=== PATIENT | male | born 1980 | race Caucasian/White ===

== ENCOUNTER 2019-07-26 06:16 | Emergency (ER) | payer BC ==
--- NOTE | 2019-07-26 06:37 | EDM.PDOC ---
ED HPI GENERAL MEDICAL PROBLEM - General Chief Complaint: General Stated Complaint: PERSISTENT FLU-LIKE SYMPTOMS Time Seen by Provider: 07/26/19 06:36 Source of Information: Reports: Patient - History of Present Illness INITIAL COMMENTS - FREE TEXT/NARRATIVE: HISTORY AND PHYSICAL: History of present illness: [Patient presents with persistent fever chills sweats loose stools for 2 weeks as well as sore throat has no muffled voice drooling or trismus is diagnosed with sinusitis and placed on a Z-Guido which he is completed continues to have continued fever chills and sweats], Review of systems: As per history of present illness and below otherwise all systems reviewed and negative. Past medical history: As per history of present illness and as reviewed below otherwise noncontributory. Surgical history: As per history of present illness and as reviewed below otherwise noncontributory. Social history: No reported history of drug or alcohol abuse. Family history: As per history of present illness and as reviewed below otherwise noncontributory. Physical exam: HEENT: Atraumatic, normocephalic, pupils reactive, negative for conjunctival pallor or scleral icterus, mucous membranes moist, throat clear, neck supple, nontender, trachea midlin As tenderness left greater than right no meningeal signs Lungs: Clear to auscultation, breath sounds equal bilaterally, chest nontender. Heart: S1S2, regular, negative for clicks, rubs, or JVD. Abdomen: Soft, nondistended, nontender. Negative for masses or hepatosplenomegaly. Negative for costovertebral tenderness. Pelvis: Stable nontender. Genitourinary: Deferred. Rectal: Deferred. Extremities: Atraumatic, negative for cords or calf pain. Neurovascular unremarkable. Neuro: Awake, alert, oriented. Cranial nerves II through XII unremarkable. Cerebellum unremarkable. Motor and sensory unremarkable throughout. Exam nonfocal. Diagnostics: [CBC CMP UA West Nile Lyme titers Chest 1 view ] Therapeutics: [ of a Savage [id number] symptomatic therapies discussed ] Impression: [ sinusitis Persistent cough ] Definitive disposition and diagnosis as appropriate pending reevaluation and review of above. body Pain Score (Numeric/FACES): 3 - Related Data Allergies Allergy/AdvReac Type Severity Reaction Status Date / Time No Known Allergies Allergy Verified 07/26/19 06:18 Home Meds: Home Meds . [No Known Home Meds] 07/26/19 [History] Past Medical History HEENT History: Reports: Sinusitis Social & Family History - Family History Family Medical History: Noncontributory - Tobacco Use Smoking Status *Q: Current Every Day Smoker Years of Tobacco use: 10 Packs/Tins Daily: 1 - Recreational Drug Use Recreational Drug Use: No ED ROS GENERAL - Review of Systems Review Of Systems: See Below ED EXAM, GENERAL - Physical Exam Exam: See Below Course - Vital Signs Last Recorded V/S: Last Vital Signs Temp 97 F 07/26/19 06:20 Pulse 76 07/26/19 06:20 Resp 18 07/26/19 06:20 BP 147/97 H 07/26/19 06:20 Pulse Ox 98 07/26/19 06:20 - Orders/Labs/Meds Orders: Active Orders 24 hr Category Date Time Status Chest 1V Frontal [CR] Stat Exams 07/26/19 06:36 Ordered CBC WITH AUTO DIFF [HEME] Stat Lab 07/26/19 06:36 Ordered COMPREHENSIVE METABOLIC PN,CMP [CHEM] Stat Lab 07/26/19 06:36 Ordered LYME, TOTAL AB TEST/REFLEX [REF] Stat Lab 07/26/19 06:37 Ordered UA RFX JUAN AND CULT IF INDIC [URIN] Stat Lab 07/26/19 06:36 Ordered WEST NILE VIRUS ANTIBODY,SERUM [REF] Stat Lab 07/26/19 06:37 Ordered Departure - Departure Time of Disposition: 06:39 Disposition: Home, Self-Care 01 Condition: Good Clinical Impression: Sinusitis - Discharge Information Referrals: PCP,None [Primary Care Provider] - Forms: ED Department Discharge Additional Instructions: Medication as prescribed [id number] symptomatic therapy is discussed Zyrtec 10 mg by mouth daily may benefit flonase 2 sprays each nostril daily may benefit harmony pot daily use may benefit as discussed I did check for West Nile and Lyme's disease as requested, these are send out test will not be available for several days likely Monday/monday at this time Return if symptoms persist or worsen or if new concerning symptoms develop Follow-up with primary care in 2 weeks sooner as needed [facility] - Primary Care [address] [place] [id number] for persistent sinusitis consider ENT follow-up: this can be gained through the [facility] or [facility] facility in [place], [place] The following information is given to patients seen in the emergency department who are being discharged to home. This information is to outline your options for follow-up care. We provide all patients seen in our emergency department with a follow-up referral. The need for follow-up, as well as the timing and circumstances, are variable depending upon the specifics of your emergency department visit. If you don't have a primary care physician on staff, we will provide you with a referral. We always advise you to contact your personal physician following an emergency department visit to inform them of the circumstance of the visit and for follow-up with them and/or the need for any referrals to a consulting specialist. The emergency department will also refer you to a specialist when appropriate. This referral assures that you have the opportunity for follow-up care with a specialist. All of these measure are taken in an effort to provide you with optimal care, which includes your follow-up. Under all circumstances we always encourage you to contact your private physician who remains a resource for coordinating your care. When calling for follow-up care, please make the office aware that this follow-up is from your recent emergency room visit. If for any reason you are refused follow-up, please contact the [facility] emergency department at and asked to speak to the emergency department charge nurse. - My Orders Last 24 Hours: My Active Orders 07/26/19 06:36 Chest 1V Frontal [CR] Stat CBC WITH AUTO DIFF [HEME] Stat COMPREHENSIVE METABOLIC PN,CMP [CHEM] Stat UA RFX JUAN AND CULT IF INDIC [URIN] Stat 07/26/19 06:37 LYME, TOTAL AB TEST/REFLEX [REF] Stat WEST NILE VIRUS ANTIBODY,SERUM [REF] Stat - Assessment/Plan Last 24 Hours: My Active Orders 07/26/19 06:36 Chest 1V Frontal [CR] Stat CBC WITH AUTO DIFF [HEME] Stat COMPREHENSIVE METABOLIC PN,CMP [CHEM] Stat UA RFX JUAN AND CULT IF INDIC [URIN] Stat 07/26/19 06:37 LYME, TOTAL AB TEST/REFLEX [REF] Stat WEST NILE VIRUS ANTIBODY,SERUM [REF] Stat
--- NOTE | 2019-07-26 07:22 | CR ---
Indication : Fever. FINDINGS: A single portable chest x-ray shows a normal cardiac silhouette. The lungs show no focal pulmonary opacities. Sharp pleural margins. No pneumothorax. IMPRESSION: No evidence of acute pulmonary abnormalities. Dictated by Wilbur Golden MD @ 07/26/2019 7:21:07 AM Dictated by: Wilbur Golden MD @ 07/26/2019 07:21:16 (Electronically Signed)
[2019-07-26 07:33] LABS: BLOOD UREA NITROGEN,BUN 19 mg/dL (7.0-18.0); CARBON DIOXIDE,CO2 29.9 mmol/L (21.0-32.0); CHLORIDE,CL 105 mmol/L (98-107); GLUCOSE RANDOM 110 mg/dL (74-106); POTASSIUM,K 4.3 mmol/L (3.5-5.1); SODIUM,NA 142 mmol/L (136-148)
== END 2019-07-26 07:46 | disposition home or self-care (01) ==
LOC: MW.ED 06:16
DX: J32.9 Chronic sinusitis, unspecified (principal)
CPT/HCPCS: 36415; 71045; 71045-26; 80053; 85025; 86618; 86788; 86789; 99283-25

== ENCOUNTER 2019-12-23 11:37 | Emergency (ER) | payer BC ==
[2019-12-23] MEDS ORDERED: Sodium Chloride 0.9% 1,000 ML IV ONE (11:50)
[2019-12-23] MEDS ORDERED: LORazepam 2 MG/ML SDV IVPUSH ONE (11:50)
--- NOTE | 2019-12-23 12:24 | CR ---
Chest: Portable view of the chest was obtained. Comparison: Prior chest x-ray of 07/26/19. Heart size and mediastinum are normal. Nodular type density is noted within the left upper chest. This is most likely due to an area of atelectasis. Lungs otherwise are clear. Scoliosis is noted within the spine. Impression: 1. Nodular density within the left upper chest most likely due to atelectasis as this is not seen on prior chest x-ray. 2. Nothing acute is otherwise seen. Diagnostic code #2 This report was dictated in [place] Standard Time
[2019-12-23 13:45] LABS: BLOOD UREA NITROGEN,BUN 20 mg/dL (7.0-18.0); CARBON DIOXIDE,CO2 28.4 mmol/L (21.0-32.0); CHLORIDE,CL 106 mmol/L (98-107); GLUCOSE RANDOM 119 mg/dL (74-106); LIPASE 136 U/L (73-393); POTASSIUM,K 3.7 mmol/L (3.5-5.1); SODIUM,NA 143 mmol/L (136-148)
[2019-12-23] MEDS ORDERED: Ketorolac 30 MG/ML SDV IVPUSH ONE (13:53)
--- NOTE | 2019-12-23 13:57 | EDM.PDOC ---
ED HPI GENERAL MEDICAL PROBLEM - General Chief Complaint: Chest Pain Stated Complaint: CHEST PAIN,ARM NUMB Time Seen by Provider: 12/23/19 13:53 Source of Information: Reports: Patient - History of Present Illness INITIAL COMMENTS - FREE TEXT/NARRATIVE: HISTORY AND PHYSICAL: History of present illness: [Presents with back and left arm pain for 2 days, states 7 out of 10 worsened by movement of his arm. Symptoms began on Monday however [facility] and had some epigastric discomfort that was relieved by Prilosec He has pain on deep inspiration however no fever nausea vomiting chills sweats no shortness of breath headache dizziness or palpitation no bowel or urine symptoms at this time Produce symptoms over infraspinatus and essentially the entire left trapezius distribution as well as with full extension of the arm and along pectoralis major there is clear muscle spasm ] Review of systems: As per history of present illness and below otherwise all systems reviewed and negative. Past medical history: As per history of present illness and as reviewed below otherwise noncontributory. Surgical history: As per history of present illness and as reviewed below otherwise noncontributory. Social history: No reported history of drug or alcohol abuse. Family history: As per history of present illness and as reviewed below otherwise noncontributory. Physical exam: HEENT: Atraumatic, normocephalic, pupils reactive, negative for conjunctival pallor or scleral icterus, mucous membranes moist, throat clear, neck supple, nontender, trachea midline. Lungs: Clear to auscultation, breath sounds equal bilaterally, chest nontender. Heart: S1S2, regular, negative for clicks, rubs, or JVD. Abdomen: Soft, nondistended, nontender. Negative for masses or hepatosplenomegaly. Negative for costovertebral tenderness. Pelvis: Stable nontender. Genitourinary: Deferred. Rectal: Deferred. Extremities: Atraumatic, negative for cords or calf pain. Neurovascular unremarkable. Neuro: Awake, alert, oriented. Cranial nerves II through XII unremarkable. Cerebellum unremarkable. Motor and sensory unremarkable throughout. Exam nonfocal. Diagnostics: [CMP UA troponin EKG Chest 1 view ] Therapeutics: [ns ativan toradol ] Impression: [muscle Spasm left shoulder girdle ] Definitive disposition and diagnosis as appropriate pending reevaluation and review of above. Chest Pain Score (Numeric/FACES): 5 - Related Data Allergies Allergy/AdvReac Type Severity Reaction Status Date / Time No Known Allergies Allergy Verified 07/26/19 06:18 Home Meds: Home Meds . [No Known Home Meds] 07/26/19 [History] Past Medical History HEENT History: Reports: Sinusitis - Infectious Disease History Infectious Disease History: Reports: None Social & Family History - Family History Family Medical History: Noncontributory - Tobacco Use Smoking Status *Q: Current Every Day Smoker Years of Tobacco use: 10 Packs/Tins Daily: 1 - Recreational Drug Use Recreational Drug Use: No ED ROS GENERAL - Review of Systems Review Of Systems: See Below ED EXAM, GENERAL - Physical Exam Exam: See Below Course - Vital Signs Last Recorded V/S: Last Vital Signs Temp 96.5 F 12/23/19 11:40 Pulse 81 12/23/19 11:40 Resp 16 12/23/19 11:40 BP 167/108 H 12/23/19 11:40 Pulse Ox 97 12/23/19 11:40 - Orders/Labs/Meds Orders: Active Orders 24 hr Category Date Time Status EKG Documentation Completion [RC] STAT Care 12/23/19 11:38 Active Ketorolac [Toradol] Med 12/23/19 13:53 Once 30 mg IVPUSH ONETIME ONE Labs: Laboratory Tests 12/23/19 12/23/19 Range/Units 11:50 12:35 WBC 9.56 (4.0-11.0) K/uL RBC 5.66 (4.50-5.90) M/uL Hgb 16.1 (13.0-17.0) g/dL Hct 47.9 (38.0-50.0) % MCV 84.6 (80.0-98.0) fL MCH 28.4 (27.0-32.0) pg MCHC 33.6 (31.0-37.0) g/dL RDW Std Deviation 40.6 (28.0-62.0) fl RDW Coeff of Linda 13 (11.0-15.0) % Plt Count 154 (150-400) K/uL MPV 10.40 (7.40-12.00) fL Neut % (Auto) 57.4 (48.0-80.0) % Lymph % (Auto) 25.4 (16.0-40.0) % Ida % (Auto) 12.9 (0.0-15.0) % Eos % (Auto) 4.0 (0.0-7.0) % Baso % (Auto) 0.3 (0.0-1.5) % Neut # (Auto) 5.5 (1.4-5.7) K/uL Lymph # (Auto) 2.4 (0.6-2.4) K/uL Ida # (Auto) 1.2 H (0.0-0.8) K/uL Eos # (Auto) 0.4 (0.0-0.7) K/uL Baso # (Auto) 0.0 (0.0-0.1) K/uL Nucleated RBC % 0.0 /100WBC Nucleated RBCs # 0 K/uL Sodium 143 (136-148) mmol/L Potassium 3.7 (3.5-5.1) mmol/L Chloride 106 (98-107) mmol/L Carbon Dioxide 28.4 (21.0-32.0) mmol/L BUN 20 H (7.0-18.0) mg/dL Creatinine 1.0 (0.8-1.3) mg/dL Est Cr Clr Drug Dosing 117.59 mL/min Estimated GFR (MDRD) > 60.0 ml/min Glucose 119 H (74-106) mg/dL Calcium 8.9 (8.5-10.1) mg/dL Total Bilirubin 0.3 (0.2-1.0) mg/dL AST 18 (15-37) IU/L ALT 48 (14-63) IU/L Alkaline Phosphatase 81 (46-116) U/L Troponin I < 0.050 (0.000-0.056) ng/mL Total Protein 7.5 (6.4-8.2) g/dL Albumin 3.7 (3.4-5.0) g/dL Globulin 3.8 (2.6-4.0) g/dL Albumin/Globulin Ratio 1.0 (0.9-1.6) Lipase 136 (73-393) U/L Meds: Medications Discontinued Medications Generic Name Dose Route Start Last Admin Trade Name Freq PRN Reason Stop Dose Admin Sodium Chloride 1,000 mls @ 999 mls/hr 12/23/19 11:50 12/23/19 12:05 Normal Saline IV 12/23/19 12:50 999 mls/hr STAT ONE Administration Lorazepam 1 mg 12/23/19 11:50 12/23/19 12:06 Ativan IVPUSH 12/23/19 11:51 1 mg ONETIME ONE Administration Departure - Departure Time of Disposition: 13:56 Disposition: Home, Self-Care 01 Condition: Good Clinical Impression: Muscle spasm - Discharge Information Referrals: PCP,Unobtain [Primary Care Provider] - Additional Instructions: Patient is prescribed Return if symptoms persist or worsen Follow-up with primary care in 2 weeks [facility] - Primary Care [address] [place] [id number] The following information is given to patients seen in the emergency department who are being discharged to home. This information is to outline your options for follow-up care. We provide all patients seen in our emergency department with a follow-up referral. The need for follow-up, as well as the timing and circumstances, are variable depending upon the specifics of your emergency department visit. If you don't have a primary care physician on staff, we will provide you with a referral. We always advise you to contact your personal physician following an emergency department visit to inform them of the circumstance of the visit and for follow-up with them and/or the need for any referrals to a consulting specialist. The emergency department will also refer you to a specialist when appropriate. This referral assures that you have the opportunity for follow-up care with a specialist. All of these measure are taken in an effort to provide you with optimal care, which includes your follow-up. Under all circumstances we always encourage you to contact your private physician who remains a resource for coordinating your care. When calling for follow-up care, please make the office aware that this follow-up is from your recent emergency room visit. If for any reason you are refused follow-up, please contact the [facility] emergency department at and asked to speak to the emergency department charge nurse. Sepsis Event Note - Evaluation Sepsis Screening Result: No Definite Risk - Focused Exam Vital Signs: Vital Signs Temp Pulse Resp BP Pulse Ox 12/23/19 11:40 96.5 F 81 16 167/108 H 97 Date Exam was Performed: 12/23/19 Time Exam was Performed: 13:53 - My Orders Last 24 Hours: My Active Orders 12/23/19 11:38 EKG Documentation Completion [RC] STAT 12/23/19 13:53 Ketorolac [Toradol] 30 mg IVPUSH ONETIME ONE - Assessment/Plan Last 24 Hours: My Active Orders 12/23/19 11:38 EKG Documentation Completion [RC] STAT 12/23/19 13:53 Ketorolac [Toradol] 30 mg IVPUSH ONETIME ONE
== END 2019-12-23 14:35 | disposition home or self-care (01) ==
LOC: MW.ED 11:37
DX: M62.838 Other muscle spasm (principal); F17.210 Nicotine dependence, cigarettes, uncomplicated
CPT/HCPCS: 71045; 80053; 83690; 84484; 85025; 93005; 96361; 96374; 96375; 99285; J1885; J2060; J7030

== ENCOUNTER 2021-10-02 11:51 | Emergency (ER) | payer BC ==
[2021-10-02] MEDS ORDERED: Sodium Chloride 0.9% 2.5 ML Syringe FLUSH PRN (12:41)
[2021-10-02] MEDS ORDERED: Sodium Chloride 0.9% 10 ML Syringe FLUSH PRN (12:41)
[2021-10-02] MEDS ORDERED: Ondansetron 4 MG/2 ML SDV IVPUSH ONE (12:42)
[2021-10-02] MEDS ORDERED: Sodium Chloride 0.9% 1,000 ML IV ONE (12:42)
[2021-10-02] MEDS ORDERED: Ketorolac 30 MG/ML SDV IVPUSH ONE (12:42)
--- NOTE | 2021-10-02 12:53 | PCM.EKG ---
#1 Interpretation EKG Date: 10/02/21 Time: 12:52 EKG Interpretation Comments: Sinus bradycardia rate of 50 nonspecific intraventricular conduction delay but no bundle branch block, no acute ischemia normal axis
--- NOTE | 2021-10-02 13:09 | EDM.PDOC ---
ED HPI GENERAL MEDICAL PROBLEM - General Chief Complaint: Respiratory Problem Stated Complaint: HARD TIME BREATHING ON R SIDE NEAR BACK Time Seen by Provider: 10/02/21 12:33 Source of Information: Reports: Patient History Limitations: Reports: No Limitations - History of Present Illness INITIAL COMMENTS - FREE TEXT/NARRATIVE: HISTORY AND PHYSICAL: History of present illness: The patient is a 41-year-old male who presents to the emergency department with complaints of temperature, cough, cold-like symptoms that started last . Patient states that he treated his temperature with Tylenol and Motrin and his cold with [id number] remedies. Patient states that he started feeling better yesterday even though he had a temperature yesterday. He had no temperature upon waking today and decided to going to work. Patient was at work for less than 2 hours when he started having some chest pain and could not breathe and felt like he was breathing through 2. The patient then went home took some NyQuil woke up feeling somewhat better but still decided to seek treatment in the emergency department. Patient states that he does have slight nausea. The patient is concerned as 3 of his coworkers are in the hospital with COVID-19. Patient is not vaccinated. The patient states that 2 weeks ago he had similar symptoms. Patient denies any change in vision, syncope or near syncope. Denies any back pain. Denies any abdominal pain, vomiting, diarrhea, constipation or dysuria. Has not noted any blood in urine or stool. Patient has been eating and drinking appropriately. Review of systems: As per history of present illness and below otherwise all systems reviewed and negative. Past medical history: As per history of present illness and as reviewed below otherwise noncontributory. Surgical history: As per history of present illness and as reviewed below otherwise noncontributory. Social history: See social history for further information Family history: As per history of present illness and as reviewed below otherwise noncontributory. Physical exam: General: Well developed and well nourished. Alert and orientated x 3. Nontoxic in appearance and in no acute distress. Vital signs are stable and have been reviewed by me. Nursing notes were reviewed. HEENT: Atraumatic, normocephalic, pupils equal and reactive bilaterally, negative for conjunctival pallor or scleral icterus, mucous membranes moist, TMs normal bilaterally, throat clear, neck supple, nontender, trachea midline. No drooling or trismus noted. No meningeal signs. No hot potato voice noted. Lungs: Clear to auscultation bilaterally. No wheezes, rales, or rhonchi. Chest nontender. Normal work of breathing, no accessory muscles used. Heart: S1S2, regular rate and rhythm without overt murmur, gallops, or rubs. No JVD. No peripheral edema Abdomen: Soft, nondistended, nontender. Normoactive bowel sounds. Negative for masses or costovertebral tenderness. Skin: Intact, warm, dry. No lesions or rashes noted. Hematologic: No petechiae or purpra. Mucosa appropriate color and normal nail bed color and refill. Extremities: Atraumatic, moves all extremities per self without difficulty or deficits, negative for cords or calf pain. Neurovascular unremarkable. Neuro: Awake, alert, oriented. Cranial nerves II through XII unremarkable. Cerebellum unremarkable. Motor and sensory unremarkable throughout. Exam nonfocal. Psychiatric: Mood and affect are appropriate. Normal thought process. Answering questions appropriately. Notes: *This patient was seen and evaluated during the 2019 SARS-CoV-2 novel coronavirus pandemic period. Community viral transmission is ongoing at time of this encounter and the emergency department is operating under pandemic response procedures. As stated above the patient is a 41-year-old male viral-like cold symptoms for the last week. The patient woke up this morning without a fever and decided to going to work today he was at work for less than 2 hours when he started to have chest pain and felt shortness of breath as if he was breathing through 2. Patient went home took some NyQuil and woke up feeling somewhat better but still thought he should come to the emergency department. The patient is concerned as he has 3 coworkers in the hospital with Covid. The patient's SPO2 is 98% on room air with a heart rate of 71. The patient's blood pressure is 134/87. Patient's examination is benign. I have ordered a Covid work-up to include a Covid/flu swab, CBC, CMP, D Dimer, EKG due to chest pain, and a chest x-ray. The patient is agreeable with this plan. Patient's CBC and CMP are unremarkable. Chest x-ray IMPRESSION: Negative chest. Flu swab is negative. COVID-19 swab is positive. The D-dimer was delayed due to a lab error. The patient's D-dimer was 0.42 which is normal. This indicates the patient does not have a pulmonary embolism and does not need a CT. After receiving IV fluids, Toradol, and Zofran the patient is feeling much better. I have educated the patient that he is unable to go back to work until released from the health department. I have educated the patient on the need to isolate and detailed signs and symptoms on when he needs to return to the emergency department. The patient verbalized understanding. The patient is not a candidate for the monoclonal antibodies. I have talked with the patient about today's findings, in addition to providing specific details for plan of care. Reassessment at the time of disposition demonstrates that the patient is in no acute distress. The patient is stable for discharge, counseling was provided and we discussed in great detail signs and symptoms that would prompt them to return to the Emergency Department. Medication, follow up and supportive care measures were reviewed and discussed. Voices understanding and is agreeable to plan of care. Denies any further questions or concerns at this time. Diagnostics: Covid/flu swab, CBC, CMP, D Dimer, EKG, CXR 2V Therapeutics: IV fluids, Toradol, Zofran Impression: COVID-19 Plan: 1. Your COVID-19 screening is positive. That means you do have the coronavirus and you are considered contagious. Your vital signs and oxygen saturation are well enough that you were able to monitor your symptoms at home. Continue to monitor for trouble breathing, new confusion or inability to arouse, bluish lips or face or any of the other symptoms we discussed -if this occurs please return to the emergency room. 2. Please self quarantine until cleared by [facility] Department. Inform any persons that you have been in contact with since you started becoming symptomatic that you have tested positive; they should be made aware and take the appropriate steps as needed. 3. You can take NyQuil during the evening to help get a restful night sleep. May alternate Tylenol and ibuprofen as needed for pain and fever management. 4. The [facility] health department will be calling you and following up with you. The [place] COVID 19 Hotline phone number , They are open Monday - Monday 7am - 7pm. Follow up with your primary care provider for re-evaluation and re-testing after the 10 day quarantine and discuss when you should be seen. Definitive disposition and diagnosis as appropriate pending reevaluation and review of above. R side Pain Score (Numeric/FACES): 5 - Related Data Allergies Allergy/AdvReac Type Severity Reaction Status Date / Time No Known Allergies Allergy Verified 10/02/21 12:28 Home Meds: Home Meds . [No Known Home Meds] 07/26/19 [History] Past Medical History HEENT History: Reports: Sinusitis Cardiovascular History: Reports: None Respiratory History: Reports: None Gastrointestinal History: Reports: None Genitourinary History: Reports: None Musculoskeletal History: Reports: None Neurological History: Reports: None Psychiatric History: Reports: None Endocrine/Metabolic History: Reports: None Hematologic History: Reports: None Immunologic History: Reports: None Oncologic (Cancer) History: Reports: None Dermatologic History: Reports: None - Infectious Disease History Infectious Disease History: Reports: Chicken Pox - Past Surgical History Head Surgeries/Procedures: Reports: None HEENT Surgical History: Reports: None Social & Family History - Family History Family Medical History: No Pertinent Family History - Tobacco Use Tobacco Use Status *Q: Current Every Day Tobacco User Years of Tobacco use: 10 Packs/Tins Daily: 0.5 - Caffeine Use Caffeine Use: Reports: Energy Drinks - Recreational Drug Use Recreational Drug Use: No ED ROS GENERAL - Review of Systems Review Of Systems: Comprehensive ROS is negative, except as noted in HPI. ED EXAM, GENERAL - Physical Exam Exam: See Below (See dictation) Course - Vital Signs Last Recorded V/S: Last Vital Signs Temp 96.8 F L 10/02/21 15:15 Pulse 53 L 10/02/21 15:15 Resp 18 10/02/21 14:16 BP 137/83 10/02/21 15:15 Pulse Ox 99 10/02/21 15:15 - Orders/Labs/Meds Orders: Active Orders 24 hr Category Date Time Status Saline Lock Insert [OM.PC] Stat Oth 10/02/21 12:41 Ordered Labs: Laboratory Tests 10/02/21 10/02/21 10/02/21 Range/Units 12:25 12:25 12:25 WBC 5.60 (4.0-11.0) K/uL RBC 5.29 (4.50-5.90) M/uL Hgb 14.9 (13.0-17.0) g/dL Hct 45.3 (38.0-50.0) % MCV 85.6 (80.0-98.0) fL MCH 28.2 (27.0-32.0) pg MCHC 32.9 (31.0-37.0) g/dL RDW Std Deviation 41.5 (28.0-62.0) fl RDW Coeff of Linda 13 (11.0-15.0) % Plt Count 161 (150-400) K/uL MPV 10.20 (7.40-12.00) fL Neut % (Auto) 36.1 L (48.0-80.0) % Lymph % (Auto) 44.8 H (16.0-40.0) % [place] % (Auto) 14.1 (0.0-15.0) % Eos % (Auto) 4.6 (0.0-7.0) % Baso % (Auto) 0.4 (0.0-1.5) % Neut # (Auto) 2.0 (1.4-5.7) K/uL Lymph # (Auto) 2.5 H (0.6-2.4) K/uL [place] # (Auto) 0.8 (0.0-0.8) K/uL Eos # (Auto) 0.3 (0.0-0.7) K/uL Baso # (Auto) 0.0 (0.0-0.1) K/uL Nucleated RBC % 0.0 /100WBC Nucleated RBCs # 0 K/uL D-Dimer, Quantitative 0.42 (0.0-0.50) mg/L FEU Sodium 141 (136-148) mmol/L Potassium 3.9 (3.5-5.1) mmol/L Chloride 105 (98-107) mmol/L Carbon Dioxide 27.0 (21.0-32.0) mmol/L BUN 19 H (7.0-18.0) mg/dL Creatinine 1.1 (0.8-1.3) mg/dL Est Cr Clr Drug Dosing 104.83 mL/min Estimated GFR (MDRD) > 60.0 ml/min Glucose 102 (74-106) mg/dL Calcium 8.2 L (8.5-10.1) mg/dL Total Bilirubin 0.3 (0.2-1.0) mg/dL AST 27 (15-37) IU/L ALT 49 (14-63) IU/L Alkaline Phosphatase 76 (46-116) U/L Total Protein 7.6 (6.4-8.2) g/dL Albumin 3.4 (3.4-5.0) g/dL Globulin 4.2 H (2.6-4.0) g/dL Albumin/Globulin Ratio 0.8 L (0.9-1.6) Influenza Type A RNA (NEGATIVE) Influenza Type B RNA (NEGATIVE) SARS-CoV-2 RNA (JUAN C) (NEGATIVE) 10/02/21 Range/Units 12:52 WBC (4.0-11.0) K/uL RBC (4.50-5.90) M/uL Hgb (13.0-17.0) g/dL Hct (38.0-50.0) % MCV (80.0-98.0) fL MCH (27.0-32.0) pg MCHC (31.0-37.0) g/dL RDW Std Deviation (28.0-62.0) fl RDW Coeff of Linda (11.0-15.0) % Plt Count (150-400) K/uL MPV (7.40-12.00) fL Neut % (Auto) (48.0-80.0) % Lymph % (Auto) (16.0-40.0) % [place] % (Auto) (0.0-15.0) % Eos % (Auto) (0.0-7.0) % Baso % (Auto) (0.0-1.5) % Neut # (Auto) (1.4-5.7) K/uL Lymph # (Auto) (0.6-2.4) K/uL [place] # (Auto) (0.0-0.8) K/uL Eos # (Auto) (0.0-0.7) K/uL Baso # (Auto) (0.0-0.1) K/uL Nucleated RBC % /100WBC Nucleated RBCs # K/uL D-Dimer, Quantitative (0.0-0.50) mg/L FEU Sodium (136-148) mmol/L Potassium (3.5-5.1) mmol/L Chloride (98-107) mmol/L Carbon Dioxide (21.0-32.0) mmol/L BUN (7.0-18.0) mg/dL Creatinine (0.8-1.3) mg/dL Est Cr Clr Drug Dosing mL/min Estimated GFR (MDRD) ml/min Glucose (74-106) mg/dL Calcium (8.5-10.1) mg/dL Total Bilirubin (0.2-1.0) mg/dL AST (15-37) IU/L ALT (14-63) IU/L Alkaline Phosphatase (46-116) U/L Total Protein (6.4-8.2) g/dL Albumin (3.4-5.0) g/dL Globulin (2.6-4.0) g/dL Albumin/Globulin Ratio (0.9-1.6) Influenza Type A RNA NEGATIVE (NEGATIVE) Influenza Type B RNA NEGATIVE (NEGATIVE) SARS-CoV-2 RNA (JUAN C) POSITIVE H (NEGATIVE) Meds: Medications Discontinued Medications Generic Name Dose Route Start Last Admin Trade Name Freq PRN Reason Stop Dose Admin Sodium Chloride 1,000 mls @ 999 mls/hr 10/02/21 12:42 10/02/21 13:10 Normal Saline IV 10/02/21 13:42 999 mls/hr .BOLUS ONE Administration Ketorolac Tromethamine 30 mg 10/02/21 12:42 10/02/21 13:10 Ketorolac 30 Mg/Ml Sdv IVPUSH 10/02/21 12:43 30 mg ONETIME ONE Administration Ondansetron HCl 4 mg 10/02/21 12:42 10/02/21 13:11 Ondansetron 4 Mg/2 Ml Sdv IVPUSH 10/02/21 12:43 4 mg ONETIME ONE Administration Sodium Chloride 10 ml 10/02/21 12:41 10/02/21 13:12 Sodium Chloride 0.9% 10 Ml Syringe FLUSH 10 ml ASDIRECTED PRN Administration Keep Vein Open Sodium Chloride 2.5 ml 10/02/21 12:41 10/02/21 13:11 Sodium Chloride 0.9% 2.5 Ml Syringe FLUSH 2.5 ml ASDIRECTED PRN Administration Keep Vein Open Departure - Departure Time of Disposition: 15:08 Disposition: Home, Self-Care 01 Condition: Good Clinical Impression: COVID-19 - Discharge Information *PRESCRIPTION DRUG MONITORING PROGRAM REVIEWED*: Not Applicable *COPY OF PRESCRIPTION DRUG MONITORING REPORT IN PATIENT MARTIN: Not Applicable Instructions: 10 Things You Can Do to Manage Your COVID-19 Symptoms at Home - [facility] [place] (06/04/2021), COVID-19: Quarantine vs. Isolation - [facility] [place] (11/05/2020), COVID- 19: What to Do If You Are Sick- [facility] [place] (02/03/2021) Referrals: PCP,None [Primary Care Provider] - Forms: ED Department Discharge Additional Instructions: The following information is given to patients seen in the emergency department who are being discharged to home. This information is to outline your options for follow-up care. We provide all patients seen in our emergency department with a follow-up referral. The need for follow-up, as well as the timing and circumstances, are variable depending upon the specifics of your emergency department visit. If you don't have a primary care physician on staff, we will provide you with a referral. We always advise you to contact your personal physician following an emergency department visit to inform them of the circumstance of the visit and for follow-up with them and/or the need for any referrals to a consulting specialist. The emergency department will also refer you to a specialist when appropriate. This referral assures that you have the opportunity for follow-up care with a specialist. All of these measure are taken in an effort to provide you with optimal care, which includes your follow-up. Under all circumstances we always encourage you to contact your private physician who remains a resource for coordinating your care. When calling for follow-up care, please make the office aware that this follow-up is from your recent emergency room visit. If for any reason you are refused follow-up, please contact the [facility] Emergency Department at and asked to speak to the emergency department charge nurse. [facility] [address] [place] [id number] [address] Plan: 1. Your COVID-19 screening is positive. That means you do have the coronavirus and you are considered contagious. Your vital signs and oxygen saturation are well enough that you were able to monitor your symptoms at home. Continue to monitor for trouble breathing, new confusion or inability to arouse, bluish lips or face or any of the other symptoms we discussed -if this occurs please return to the emergency room. 2. Please self quarantine until cleared by [facility] Department. Inform any persons that you have been in contact with since you started becoming sym ptomatic that you have tested positive; they should be made aware and take the appropriate steps as needed. 3. You can take NyQuil during the evening to help get a restful night sleep. May alternate Tylenol and ibuprofen as needed for pain and fever management. 4. The [facility] hospital department will be calling you and following up with you. The [place] COVID 19 Hotline phone number , They are open Monday - Monday 7am - 7pm. Follow up with your primary care provider for re-evaluation and re-testing after the 10 day quarantine and discuss when you should be seen. Sepsis Event Note (ED) - Evaluation Sepsis Screening Result: No Definite Risk - Focused Exam Vital Signs: Vital Signs Temp Pulse Resp BP Pulse Ox 10/02/21 15:15 96.8 F L 53 L 137/83 99 10/02/21 14:16 97.3 F 57 L 18 128/80 99 10/02/21 13:30 63 18 134/87 97 10/02/21 12:28 96.5 F L 78 18 134/87 96 - My Orders Last 24 Hours: My Active Orders 10/02/21 12:41 Saline Lock Insert [OM.PC] Stat - Assessment/Plan Last 24 Hours: My Active Orders 10/02/21 12:41 Saline Lock Insert [OM.PC] Stat
[2021-10-02 13:31] LABS: BLOOD UREA NITROGEN,BUN 19 mg/dL (7.0-18.0); CHLORIDE,CL 105 mmol/L (98-107); GLUCOSE RANDOM 102 mg/dL (74-106); POTASSIUM,K 3.9 mmol/L (3.5-5.1); SODIUM,NA 141 mmol/L (136-148)
--- NOTE | 2021-10-02 13:43 | CR ---
INDICATION: Cough COMPARISON : 23 December 2019 TECHNIQUE: Two view chest. FINDINGS: The lungs are clear. The heart, mediastinum and pulmonary vessels are of normal size. There is no evidence of pleural disease. IMPRESSION: Negative chest. Dictated by Montana Henderson MD @ 10/02/2021 1:42:16 PM (Electronically Signed)
[2021-10-02 14:03] LABS: CORONAVIRUS COVID-19 NAA POSITIVE (NEGATIVE); INFLUENZA A NAA NEGATIVE (NEGATIVE); INFLUENZA B NAA NEGATIVE (NEGATIVE)
== END 2021-10-02 15:20 | disposition home or self-care (01) ==
LOC: MW.ED 11:51
DX: U07.1 COVID-19 (principal); Z72.0 Tobacco use
CPT/HCPCS: 0240U; 36415; 71046; 80053; 85025; 85379; 93005; 96374; 96375; 99284; J1885; J2405; J7030

== ENCOUNTER 2021-10-09 10:10 | Emergency (ER) | payer BC ==
--- NOTE | 2021-10-09 10:46 | EDM.PDOC ---
ED HPI GENERAL MEDICAL PROBLEM - General Chief Complaint: Respiratory Problem Stated Complaint: COVID POSITIVE, SOB, CHEST PAIN Time Seen by Provider: 10/09/21 10:39 Source of Information: Reports: Patient History Limitations: Reports: No Limitations - History of Present Illness INITIAL COMMENTS - FREE TEXT/NARRATIVE: HISTORY AND PHYSICAL: History of present illness: Patient is a 41-year-old male who presents to the emergency room with concerns of generally feeling unwell, chills, syncope, chest pain and palpitations. Patient states he was diagnosed with COVID-19 on 09/23/2021. Since his diagnosis he has had a plethora of symptoms which he states are "not normal for me". He was evaluated in the emergency room on 10/02/2021 for chest pain and shortness of breath. He reports that he was evaluated but "they could not find anything wrong with me.. this isn't normal". Since being seen in the emergency room he continues to experience shortness of breath and chest pain. States last evening his "heart stopped" which woke him from sleep. Today he woke up and "I felt great" and he said he went into the living room to tell his significant other how great he was feeling and "I got really dizzy and passed out". Denies any urinary or fecal incontinence. Was not postictal. Patient denies any fever, chills, headache, change in vision, syncope or near syncope. Denies any chest pain, back pain, shortness of breath or cough. Denies any abdominal pain, nausea, vomiting, diarrhea, constipation or dysuria. Has not noted any blood in urine or stool. Patient has been eating and drinking appropriately. No recent travel or sick contacts. Review of systems: As per history of present illness and below otherwise all systems reviewed and negative. Past medical history: As per history of present illness and as reviewed below otherwise noncontributory. Surgical history: As per history of present illness and as reviewed below otherwise noncontributory. Social history: See social history for further information Family history: As per history of present illness and as reviewed below otherwise noncontributory. Physical exam: General: Well developed and well nourished. Alert and orientated x 3. Nontoxic in appearance and in no acute distress. Vital signs are stable and have been reviewed by me. Nursing notes were reviewed. HEENT: Atraumatic, normocephalic, pupils equal and reactive bilaterally, negative for conjunctival pallor or scleral icterus, mucous membranes moist, TMs normal bilaterally, throat clear, neck supple, nontender, trachea midline. No d rooling or trismus noted. No meningeal signs. No hot potato voice noted. Lungs: Clear to auscultation bilaterally. No wheezes, rales, or rhonchi. Chest nontender. Normal work of breathing, no accessory muscles used. Heart: S1S2, regular rate and rhythm without overt murmur, gallops, or rubs. No JVD. No peripheral edema Abdomen: Soft, nondistended, nontender. Normoactive bowel sounds. Negative for masses or costovertebral tenderness. Pelvis: Stable nontender. Genitourinary/Rectal: Deferred. Skin: Intact, warm, dry. No lesions or rashes noted. Hematologic: No petechiae or purpra. Mucosa appropriate color and normal nail bed color and refill. Extremities: Atraumatic, moves all extremities per self without difficulty or deficits, negative for cords or calf pain. Neurovascular unremarkable. Neuro: Awake, alert, oriented. Cranial nerves II through XII unremarkable. Cerebellum unremarkable. Motor and sensory unremarkable throughout. Exam nonfocal. Psychiatric: Mood and affect are appropriate. Normal thought process. Answering questions appropriately. Please note that the patient was seen and evaluated during the 2019 SARS-CoV-2 novel coronavirus pandemic period. Community viral transmission is ongoing at time of this encounter and the emergency department is operating under pandemic response procedures. Medical Decision Making: Lab work is within normal limits. Negative Troponin and TSH. Patient's head CT is unremarkable of the brain. Possible old nasal fracture deformity and inflammatory changes of the paranasal sinuses. Chest CT is not quite optimal to rule out subtle pulmonary thromboembolism; no obvious PE. Single area of patchy alveolar consolidation left upper lobe; suggestive but not diagnostic of COVID- 19 pneumonia. No other abnormalities are identified. I have talked with the patient about today's findings, in addition to providing specific details for plan of care. He would like to be discharged to home, we did discussed admission for his syncope, he declines. Will write for a ZIO patch of these episodes of palpations, will follow up with cardiology. Reassessment at the time of disposition demonstrates that the patient is in no acute distress. The patient is stable for discharge, counseling was provided and we discussed in great detail signs and symptoms that would prompt them to return to the Emergency Department. Medication, follow up and supportive care measures were reviewed and discussed. Voices understanding and is agreeable to plan of care. Denies any further questions or concerns at this time. Diagnostics: CBC, CMP, UA, Troponin, EKG, CT chest, Head CT, Orthostatic, TSH Therapeutics: IV fluids Prescription: ZIO patch Impression: Palpitations COVID-19 Syncope Plan: 1. You were evaluated today on an emergent basis. Your labs (including cardiac enzymes, thyroid, electrolytes) were normal. Your head CT is unremarkable, some sinus inflammation. Chest CT shows no concerns for blood clot. You do have evidence of COVID in the left upper lobe. 2. Increase your fluids. You can alternate Tylenol and ibuprofen as needed for pain and fever management. 3. We encourage you to follow up with your primary care provider and/or hammad mmended specialist in the next few days for re-evaluation and further care/management. 4. If your symptoms should worsen, new symptoms develop or any of the signs and symptoms we discussed should arise please return to the emergency room or call 911 (if needed). Definitive disposition and diagnosis as appropriate pending reevaluation and review of above. - Related Data Allergies Allergy/AdvReac Type Severity Reaction Status Date / Time No Known Allergies Allergy Verified 10/02/21 12:28 Home Meds: Home Meds . [No Known Home Meds] 07/26/19 [History] Past Medical History HEENT History: Reports: Sinusitis Cardiovascular History: Reports: None Respiratory History: Reports: None Gastrointestinal History: Reports: None Genitourinary History: Reports: None Musculoskeletal History: Reports: None Neurological History: Reports: None Psychiatric History: Reports: None Endocrine/Metabolic History: Reports: None Hematologic History: Reports: None Immunologic History: Reports: None Oncologic (Cancer) History: Reports: None Dermatologic History: Reports: None - Infectious Disease History Infectious Disease History: Reports: Chicken Pox - Past Surgical History Head Surgeries/Procedures: Reports: None HEENT Surgical History: Reports: None Social & Family History - Family History Family Medical History: No Pertinent Family History - Caffeine Use Caffeine Use: Reports: Energy Drinks ED ROS GENERAL - Review of Systems Review Of Systems: Comprehensive ROS is negative, except as noted in HPI. ED EXAM, GENERAL - Physical Exam Exam: See Below (See dictation) Course - Vital Signs Last Recorded V/S: Last Vital Signs Temp 98.2 F 10/09/21 10:39 Pulse 70 10/09/21 10:39 Resp 18 10/09/21 10:39 BP 130/77 10/09/21 10:39 Pulse Ox 97 10/09/21 10:39 - Orders/Labs/Meds Orders: Active Orders 24 hr Category Date Time Status UA RFX JUAN AND CULT IF INDIC [URIN] Stat Lab 10/09/21 10:47 Ordered Labs: Laboratory Tests 10/09/21 10/09/21 10/09/21 Range/Units 11:08 11:08 11:08 WBC 8.08 (4.0-11.0) K/uL RBC 5.64 (4.50-5.90) M/uL Hgb 15.8 (13.0-17.0) g/dL Hct 47.6 (38.0-50.0) % MCV 84.4 (80.0-98.0) fL MCH 28.0 (27.0-32.0) pg MCHC 33.2 (31.0-37.0) g/dL RDW Std Deviation 40.3 (28.0-62.0) fl RDW Coeff of Linda 13 (11.0-15.0) % Plt Count 196 (150-400) K/uL MPV 10.10 (7.40-12.00) fL Neut % (Auto) 61.5 (48.0-80.0) % Lymph % (Auto) 26.7 (16.0-40.0) % Baldwin % (Auto) 10.0 (0.0-15.0) % Eos % (Auto) 1.7 (0.0-7.0) % Baso % (Auto) 0.1 (0.0-1.5) % Neut # (Auto) 5.0 (1.4-5.7) K/uL Lymph # (Auto) 2.2 (0.6-2.4) K/uL Baldwin # (Auto) 0.8 (0.0-0.8) K/uL Eos # (Auto) 0.1 (0.0-0.7) K/uL Baso # (Auto) 0.0 (0.0-0.1) K/uL Nucleated RBC % 0.0 /100WBC Nucleated RBCs # 0 K/uL Sodium 142 (136-148) mmol/L Potassium 4.4 (3.5-5.1) mmol/L Chloride 105 (98-107) mmol/L Carbon Dioxide 27.9 (21.0-32.0) mmol/L BUN 19 H (7.0-18.0) mg/dL Creatinine 1.1 (0.8-1.3) mg/dL Est Cr Clr Drug Dosing 104.83 mL/min Estimated GFR (MDRD) > 60.0 ml/min Glucose 119 H (74-106) mg/dL Calcium 9.3 (8.5-10.1) mg/dL Magnesium 2.0 (1.8-2.4) mg/dL Total Bilirubin 0.3 (0.2-1.0) mg/dL AST 18 (15-37) IU/L ALT 50 (14-63) IU/L Alkaline Phosphatase 80 (46-116) U/L Creatine Kinase 89 (26-308) U/L Troponin I < 0.050 (0.000-0.056) ng/mL Total Protein 8.1 (6.4-8.2) g/dL Albumin 3.8 (3.4-5.0) g/dL Globulin 4.3 H (2.6-4.0) g/dL Albumin/Globulin Ratio 0.9 (0.9-1.6) TSH, Ultra Sensitive 1.25 (0.36-3.74) uIU/mL Meds: Medications Discontinued Medications Generic Name Dose Route Start Last Admin Trade Name Karolyn PRN Reason Stop Dose Admin Sodium Chloride 1,000 mls @ 999 mls/hr 10/09/21 10:47 10/09/21 11:28 Normal Saline IV 10/09/21 11:47 999 mls/hr STAT ONE Administration Iopamidol 75 ml 10/09/21 11:25 10/09/21 11:27 Iopamidol 755 Mg/Ml 500 Ml Multipack Bottle IVPUSH 10/09/21 11:26 75 ml ONETIME ONE Administration Departure - Departure Time of Disposition: 12:13 Disposition: Home, Self-Care 01 Clinical Impression: Palpitations, COVID-19, Syncope - Discharge Information Instructions: 10 Things You Can Do to Manage Your COVID-19 Symptoms at Home - [facility] (06/04/2021) Referrals: PCP,None [Primary Care Provider] - Forms: ED Department Discharge Additional Instructions: The following information is given to patients seen in the emergency department who are being discharged to home. This information is to outline your options for follow-up care. We provide all patients seen in our emergency department with a follow-up referral. The need for follow-up, as well as the timing and circumstances, are variable depending upon the specifics of your emergency department visit. If you don't have a primary care physician on staff, we will provide you with a referral. We always advise you to contact your personal physician following an emergency department visit to inform them of the circumstance of the visit and for follow-up with them and/or the need for any referrals to a consulting sp ecialist. The emergency department will also refer you to a specialist when appropriate. This referral assures that you have the opportunity for follow-up care with a specialist. All of these measure are taken in an effort to provide you with optimal care, which includes your follow-up. Under all circumstances we always encourage you to contact your private physician who remains a resource for coordinating your care. When calling for follow-up care, please make the office aware that this follow-up is from your recent emergency room visit. If for any reason you are refused follow-up, please contact the [facility] Emergency Department at and asked to speak to the emergency department charge nurse. [facility] [address] [place] [id number] [address] Thank you for choosing the [facility] emergency department in [place] for your medical needs today. It was a pleasure caring for you. Today you were seen in the emergency department for COVID-19 sequela 1. You were evaluated today on an emergent basis. Your labs (including cardiac enzymes, thyroid, electrolytes) were normal. Your head CT is unremarkable, some sinus inflammation. Chest CT shows no concerns for blood clot. You do have evidence of COVID in the left upper lobe. EKG shows no evidence of heart attack. I have wrote for you to get a ZIO patch (event/heart monitor) that you wear x 2 weeks. This gets turned into the respiratory department. Results would go to our auto electrician. Please call to set up an appointment with cardiology to discuss results. 2. Increase your fluids. You can alternate Tylenol and ibuprofen as needed for pain and fever management. 3. We encourage you to follow up with your primary care provider and/or recommended specialist in the next few days for re-evaluation and further care/management. 4. If your symptoms should worsen, new symptoms develop or any of the signs and symptoms we discussed should arise please return to the emergency room or call 911 (if needed). Sepsis Event Note (ED) - Focused Exam Vital Signs: Vital Signs Temp Pulse Resp BP Pulse Ox 10/09/21 10:39 98.2 F 70 18 130/77 97 - My Orders Last 24 Hours: My Active Orders 10/09/21 10:47 UA RFX JUAN AND CULT IF INDIC [URIN] Stat - Assessment/Plan Last 24 Hours: My Active Orders 10/09/21 10:47 UA RFX JUAN AND CULT IF INDIC [URIN] Stat
[2021-10-09] MEDS ORDERED: Sodium Chloride 0.9% 1,000 ML IV ONE (10:47)
[2021-10-09] MEDS ORDERED: Iopamidol 755 MG/ML 500 ML Multipack Bottle IVPUSH ONE (11:25)
--- NOTE | 2021-10-09 11:33 | PCM.EKG ---
#1 Interpretation EKG Date: 10/09/21 Time: 11:24 Rhythm: NSR Rate (Beats/Min): 67 [place]: Normal P-Wave: Present QRS: Normal ST-T: Normal QT: Normal Comparison: No Change (10/02/21) EKG Interpretation Comments: Sinus Rhythm
[2021-10-09 11:37] LABS: BLOOD UREA NITROGEN,BUN 19 mg/dL (7.0-18.0); CARBON DIOXIDE,CO2 27.9 mmol/L (21.0-32.0); CHLORIDE,CL 105 mmol/L (98-107); GLUCOSE RANDOM 119 mg/dL (74-106); POTASSIUM,K 4.4 mmol/L (3.5-5.1); SODIUM,NA 142 mmol/L (136-148)
--- NOTE | 2021-10-09 12:00 | CT ---
INDICATION: Fall. TECHNIQUE: CT scan of the brain. Soft tissue and bone windows. FINDINGS: Brain: No signs of intracranial mass. No midline shift. The ventricles are normal size. Extra-axial spaces: Unremarkable. No signs for extra-axial hemorrhage. Calvarium: The calvarium is intact. Miscellaneous: Cortical irregularity suggesting fracture deformity of the left right anterior nasal bone. This could be a previous injury correlate with acute symptoms. No definite overlying swelling. There is membrane thickening in the ethmoid sinuses and some fluid / membrane thickening in the left maxillary sinus. IMPRESSION: 1. Unremarkable CT exam of the brain. 2. Possible old nasal fracture deformity and inflammatory changes of the paranasal sinuses. Please note that all CT scans at this facility use dose modulation, iterative reconstruction, and/or weight-based dosing when appropriate to reduce radiation dose to as low as reasonably achievable. Dictated by Zhen Brewer MD @ 10/09/2021 11:58:13 AM (Electronically Signed)
--- NOTE | 2021-10-09 12:07 | CT ---
INDICATIONS: Syncope; COVID-19 positive. COMPARISON: Chest radiograph December 23, 2019 and 10/02/2021. TECHNIQUE: CT chest with intravenous contrast; coronal and sagittal reformats. FINDINGS: Study is suboptimal secondary to poor bolus tracking and not appropriate timing. No gross pulmonary thromboemboli. Small pulmonary thromboemboli cannot be ruled out on this study. No abnormal mediastinal or hilar lymphadenopathy. Normal size cardiac silhouette without any evidence of pericardial effusion. No evidence of pleural effusion or chest wall pathology. A 1.2 x 9 mm ground-glass opacity left upper lung peripherally slice 51 series 502; this is suggestive but not diagnostic of COVID-19 pneumonia. No other abnormalities are identified within the chest. Limited CT through the upper abdomen is unremarkable. Calcifications identified in the left adrenal gland most likely due to old hemorrhage. Impression : Study is not quite optimal to rule out subtle pulmonary thromboembolism; no obvious PE. 1. Single area of patchy alveolar consolidation left upper lobe; suggestive but not diagnostic of COVID-19 pneumonia. 2. No other abnormalities are identified. Please note that all CT scans at this facility use dose modulation, iterative reconstruction, and/or weight-based dosing when appropriate to reduce radiation dose to as low as reasonably achievable. Dictated by Shawna Vaughan MD @ 10/09/2021 12:05:48 PM (Electronically Signed)
== END 2021-10-09 12:49 | disposition home or self-care (01) ==
LOC: MW.ED 10:10
DX: U07.1 COVID-19 (principal); R55 Syncope and collapse; R00.2 Palpitations
CPT/HCPCS: 36415; 70450; 71275; 80053; 82550; 83735; 84443; 84484; 85025; 93005; 99285; J7030; Q9967

== ENCOUNTER 2023-07-20 17:17 | Emergency (ER) | payer BC ==
[2023-07-20] MEDS ORDERED: Sodium Chloride 0.9% 2.5 ML Syringe FLUSH PRN (19:27)
[2023-07-20] MEDS ORDERED: Ketorolac 30 MG/ML SDV IVPUSH ONE (19:27)
[2023-07-20] MEDS ORDERED: Sodium Chloride 0.9% 1,000 ML IV ONE (19:27)
[2023-07-20] MEDS ORDERED: Sodium Chloride 0.9% 10 ML Syringe FLUSH PRN (19:27)
[2023-07-20 19:53] LABS: BASOPHILS PERCENT AUTO 0.5 % (0.0-1.5); EOSINOPHILS ABSOLUTE AUTO 0.2 K/uL (0.0-0.7); EOSINOPHILS PERCENT AUTO 3.1 % (0.0-7.0); HEMATOCRIT 47.5 % (38.0-50.0); HEMOGLOBIN 15.7 g/dL (13.0-17.0); LYMPHOCYTES ABSOLUTE AUTO 2.8 K/uL (0.6-2.4); LYMPHOCYTES PERCENT AUTO 36.9 % (16.0-40.0); MEAN CORPUSCULAR HEMOGLOBIN 28.6 pg (27.0-32.0); MEAN CORPUSCULAR HGB CONC 33.1 g/dL (31.0-37.0); MEAN CORPUSCULAR VOLUME 86.5 fL (80.0-98.0); MONOCYTES ABSOLUTE AUTO 0.8 K/uL (0.0-0.8); MONOCYTES PERCENT AUTO 10.5 % (0.0-15.0); NEUTROPHILS ABSOLUTE AUTO 3.8 K/uL (1.4-5.7); NRBC ABSOLUTE 0 K/uL; PLATELET COUNT,PLT 187 K/uL (150-400); RED BLOOD CELL COUNT 5.49 M/uL (4.50-5.90); WHITE BLOOD CELL COUNT,WBC 7.69 K/uL (4.0-11.0)
[2023-07-20 20:16] LABS: ALBUMIN 3.9 g/dL (3.4-5.0); BILIRUBIN TOTAL 0.4 mg/dL (0.2-1.0); CALCIUM 8.9 mg/dL (8.5-10.1); CARBON DIOXIDE,CO2 28.8 mmol/L (21.0-32.0); EST CRCL DRUG DOSING (CG) 113.03 mL/min; POTASSIUM,K 4.5 mmol/L (3.5-5.1)
[2023-07-20] MEDS ORDERED: Iopamidol 755 MG/ML 500 ML Multipack Bottle IVPUSH ONE (20:42)
== END 2023-07-20 22:11 | disposition home or self-care (01) ==
LOC: MW.ED 17:17
DX: R51.9 Headache, unspecified (principal); R55 Syncope and collapse; F17.210 Nicotine dependence, cigarettes, uncomplicated; Z86.16 Personal history of COVID-19
CPT/HCPCS: 36415; 70496; 70498; 80053; 85025; 96361; 96374; 99284; J1885; J3490; J7030; Q9967

== ENCOUNTER 2023-09-07 04:15 | Emergency (ER) | payer BC ==
[2023-09-07] MEDS ORDERED: Albuterol/Ipratropium 3.0-0.5 MG/3 ML Neb Soln NEB ONE (04:32)
[2023-09-07] MEDS ORDERED: Ondansetron 4 MG Tab.DIS PO ONE (04:41)
[2023-09-07] MEDS ORDERED: Dexamethasone 10 MG/ML SDV PO ONE (05:20)
== END 2023-09-07 05:38 | disposition home or self-care (01) ==
LOC: MW.ED 04:15
DX: R11.2 Nausea with vomiting, unspecified (principal); R06.02 Shortness of breath; Z86.16 Personal history of COVID-19
CPT/HCPCS: 71046; 94640; 99285; A9270; J8540; 99283; J7620-GY

== ENCOUNTER 2024-01-06 14:32 | Emergency (ER) | payer BC ==
[2024-01-06 14:51] LABS: BASOPHILS ABSOLUTE AUTO 0.06 K/uL (0.00-0.20); BASOPHILS PERCENT AUTO 0.6 % (0.0-1.0); EOSINOPHILS ABSOLUTE AUTO 0.08 K/uL (0.00-0.45); EOSINOPHILS PERCENT AUTO 0.8 % (0.0-6.0); HEMATOCRIT 46.2 % (42.0-52.0); HEMOGLOBIN 15.1 g/dL (14.0-18.0); IMMATURE GRAN ABSOLUTE AUTO 0.03 K/uL (0.00-0.05); IMMATURE GRAN PERCENT AUTO 0.3 % (0.0-0.4); LYMPHOCYTES ABSOLUTE AUTO 3.06 K/uL (1.00-4.80); LYMPHOCYTES PERCENT AUTO 31.4 % (24.0-44.0); MEAN CORPUSCULAR HEMOGLOBIN 27.8 pg (28.0-32.0); MEAN CORPUSCULAR HGB CONC 32.7 g/dL (32.0-36.0); MEAN CORPUSCULAR VOLUME 84.9 fL (83.0-99.0); MEAN PLATELET VOLUME 9.6 fL (9.4-12.4); MONOCYTES ABSOLUTE AUTO 1.21 K/uL (0.00-0.80); MONOCYTES PERCENT AUTO 12.4 % (0.0-8.0); NEUTROPHILS ABSOLUTE AUTO 5.32 K/uL (1.80-7.70); NEUTROPHILS PERCENT AUTO 54.5 % (41.0-71.0); PLATELET COUNT,PLT 179 K/uL (150-400); RED BLOOD CELL COUNT 5.44 M/uL (4.52-5.90); WHITE BLOOD CELL COUNT,WBC 9.76 K/uL (3.9-11.3)
[2024-01-06] MEDS: Morphine 4 MG/ML Syringe IVPUSH ONE ×3 (15:09→17:44)
[2024-01-06] MEDS: Sodium Chloride 0.9% 10 ML Syringe FLUSH PRN (15:09)
[2024-01-06] MEDS: Sodium Chloride 0.9% 2.5 ML Syringe FLUSH PRN (15:09)
[2024-01-06] MEDS: Sodium Chloride 0.9% 1,000 ML IV ONE (15:09)
[2024-01-06] MEDS: Ondansetron 4 MG Tab.DIS PO ONE (15:09)
[2024-01-06 15:11] LABS: INR 0.99 (0.86-1.11); PTT,PARTIAL THROMBOPLSTIN TIME 25.1 SEC (23.9-30.7)
[2024-01-06 15:17] LABS: A/G RATIO 1.1 (0.9-1.6); ALBUMIN 3.9 g/dL (3.4-5.0); BILIRUBIN TOTAL 0.2 mg/dL (0.2-1.0); CALCIUM 8.7 mg/dL (8.5-10.1); CARBON DIOXIDE,CO2 23.9 mmol/L (21.0-32.0); CREATININE 1.1 mg/dL (0.8-1.3); EST CRCL DRUG DOSING (CG) 102.75 mL/min; POTASSIUM,K 3.4 mmol/L (3.5-5.1); PROTEIN TOTAL,TP 7.6 g/dL (6.4-8.2)
[2024-01-06] MEDS ORDERED: Naloxone 0.4 MG/ML SDV IVPUSH PRN (15:39)
[2024-01-06] MEDS: Lidocaine/Epineph/Tetracaine 3 ML Syringe TOP ONE (17:44)
[2024-01-06] MEDS: Ampicillin/Sulbactam Na 3 GM in Sodium Chloride 0.9% 100 ML IV ONE (17:44)
[2024-01-06] MEDS: Tetracaine HCl/PF 0.5% 4 ML Bottle EYEBOTH ONE (18:57)
[2024-01-06] MEDS: HYDROmorphone 1 MG/ML Syringe IVPUSH ONE (18:57)
== END 2024-01-06 22:59 ==
LOC: MW.ED 14:32
DX: S02.32XA Fracture of orbital floor, left side, initial encounter for closed fracture (principal); S07.0XXA Crushing injury of face, initial encounter; Z86.16 Personal history of COVID-19; W19.XXXA Unspecified fall, initial encounter
CPT/HCPCS: 36415; 70450; 70486; 72125; 80053; 83690; 85025; 85610; 85730; 96365; 96375; 96376; 99285; A9270; J0295; J1170; J2270; J3490; J7030; 99291